=== PATIENT | female | born 1950 | race Hispanic/Latino ===

== ENCOUNTER 2020-11-23 10:37 | Outpatient (CLI) | payer MEDICARE ==
[2020-11-23 11:25] LABS: ALT (SGPT) 25 U/L (8-55); AST (SGOT) 23 U/L (5-34); Albumin 3.7 g/dL (3.4-4.8); Alkaline Phosphatase 110 U/L (40-110); Anion Gap 14 mmol/L (10-20); BUN (Urea Nitrogen) 18 mg/dL (9.8-20.1); Bilirubin, Total 0.3 mg/dL (0.2-1.2); Calc. Creatinine Clearance 0 mL/min (70-130); Calcium 9.4 mg/dL (7.8-10.44); Carbon Dioxide 26 mmol/L (23-31); Cardiac Risk 5.1 (Less than 4.5); Chloride 104 mmol/L (98-107); Cholesterol 189 mg/dl (< 200 Desired); Globulin 3.4 g/dL (2.4-3.5); Glucose 188 mg/dL (83-110); HDL Cholesterol 37 mg/dL (>60 Neg Risk); LDL Cholesterol, Calculated 114 mg/dL; Potassium 4.7 mmol/L (3.5-5.1); Protein, Total 7.1 g/dL (5.8-8.1); Sodium 139 mmol/L (136-145); Triglycerides 191 mg/dL (Less than 150)
[2020-11-23 16:59] LABS: Creatinine, Urine 69.27 mg/dL (47-110); Microalbumin/Creat Ratio 86.6 mg/g (Less than 30)
[2020-11-23 17:01] LABS: Hemoglobin A1c 7.5 % (4.0-6.0)
== END 2020-11-23 10:38 | disposition home or self-care (01) ==
LOC: MADLAB 10:37
PROVIDERS: ATTEND Family Medicine
DX: E78.5 Hyperlipidemia, unspecified (principal); E11.65 Type 2 diabetes mellitus with hyperglycemia
CPT/HCPCS: 36415; 80053; 80061; 82043; 83036